=== PATIENT | female | born 1960 | race Caucasian/White ===

== ENCOUNTER 2017-12-31 18:46 | Emergency (ER) | payer OTHER ==
[~2017-12-31] VITALS: Ht 152.4 cm; Wt 94.8 kg
[2017-12-31] MEDS ORDERED: DICY20TA (18:58)
[2017-12-31] MEDS ORDERED: METFORMIN HCL500 MG (18:58)
[2017-12-31] MEDS ORDERED: SIMVASTATIN20 MG (18:58)
[2017-12-31] MEDS ORDERED: COZAAR50 MG (18:58)
[2017-12-31] MEDS ORDERED: KETO10TA2 PO (21:40)
[2017-12-31] MEDS ORDERED: BUDESONIDE0.5 MG/2 M IH (21:40)
[2017-12-31] MEDS ORDERED: IPRAT-ALBUT 0.5-3 ML IH (21:40)
[2017-12-31] MEDS ORDERED: CEFDINIR300 MG PO (21:40)
[2017-12-31] MEDS ORDERED: MUCINEX DM ER1 EAC1 PO (21:40)
[2017-12-31] MEDS ORDERED: TESSALON PERLE100 M1 PO (21:40)
== END 2017-12-31 21:52 | disposition home or self-care (01) ==
LOC: ER 18:46
DX: J06.9 Acute upper respiratory infection, unspecified (principal); N39.0 Urinary tract infection, site not specified

== ENCOUNTER 2018-06-04 19:03 | Emergency (ER) | payer OTHER ==
[~2018-06-04] VITALS: Ht 165.1 cm; Wt 97.5 kg
[~2018-06-04 19:03] MED LIST: BUDESONIDE0.5 MG/2 M IH; CEFDINIR300 MG PO; COZAAR50 MG; DICY20TA; IPRAT-ALBUT 0.5-3 ML IH; KETO10TA2 PO; METFORMIN HCL500 MG; MUCINEX DM ER1 EAC1 PO; SIMVASTATIN20 MG; TESSALON PERLE100 M1 PO
[2018-06-04] MEDS ORDERED: GABAPENTIN100 MG (19:13)
== END 2018-06-04 20:35 | disposition home or self-care (01) ==
LOC: ER 19:03
DX: S90.572A Other superficial bite of ankle, left ankle, initial encounter (principal); W57.XXXA Bitten or stung by nonvenomous insect and other nonvenomous arthropods, initial encounter; Y93.89 Activity, other specified; Y92.89 Other specified places as the place of occurrence of the external cause; Y99.8 Other external cause status

== ENCOUNTER 2019-06-01 20:19 | Emergency (ER) | payer OTHER ==
[~2019-06-01] VITALS: Ht 165.1 cm; Wt 99.8 kg
[~2019-06-01 20:19] MED LIST changes: +GABAPENTIN100 MG
== END 2019-06-01 22:55 | disposition home or self-care (01) ==
LOC: ER 20:19
DX: S90.111A Contusion of right great toe without damage to nail, initial encounter (principal); W23.0XXA Caught, crushed, jammed, or pinched between moving objects, initial encounter; Y93.89 Activity, other specified; Y92.89 Other specified places as the place of occurrence of the external cause; Y99.8 Other external cause status

== ENCOUNTER 2021-11-08 18:09 | Emergency (ER) | payer OTHER ==
[~2021-11-08] VITALS: Ht 167.6 cm; Wt 104.3 kg
== END 2021-11-08 22:18 | disposition home or self-care (01) ==
LOC: ER 18:09
DX: M62.830 Muscle spasm of back (principal)

== ENCOUNTER 2021-12-05 08:35 | Emergency (ER) | payer OTHER ==
[~2021-12-05] VITALS: Ht 170.2 cm; Wt 99.8 kg
[2021-12-05] MEDS ORDERED: PROAIR HFA8.5 GM (08:40)
[2021-12-05] MEDS ORDERED: GLIMEPIRIDE2 MG (10:48)
[2021-12-05] MEDS ORDERED: TRAMADOL HCL50 MG PO (11:52)
[2021-12-05] MEDS ORDERED: NORFLEX100MG PO (11:52)
== END 2021-12-05 12:17 | disposition home or self-care (01) ==
LOC: ER 08:35
DX: M54.59 Other low back pain (principal); E11.65 Type 2 diabetes mellitus with hyperglycemia; Z79.84 Long term (current) use of oral hypoglycemic drugs

== ENCOUNTER 2021-12-11 19:32 | Emergency (ER) | payer OTHER ==
[~2021-12-11] VITALS: Ht 172.7 cm; Wt 102.1 kg
[~2021-12-11 19:32] MED LIST changes: +GLIMEPIRIDE2 MG; +NORFLEX100MG PO; +PROAIR HFA8.5 GM; +TRAMADOL HCL50 MG PO
== END 2021-12-11 22:24 | disposition home or self-care (01) ==
LOC: ER 19:32
DX: N39.0 Urinary tract infection, site not specified (principal); R10.31 Right lower quadrant pain; I10 Essential (primary) hypertension; E11.9 Type 2 diabetes mellitus without complications; Z79.84 Long term (current) use of oral hypoglycemic drugs